=== PATIENT | female | born 1970 | race Native Hawaiian/Other Pacific Islander ===

== ENCOUNTER 2018-01-08 16:46 | Emergency (ER) | payer OTHER ==
[~2018-01-08] VITALS: Ht 162.6 cm; Wt 77.1 kg
== END 2018-01-08 17:40 | disposition home or self-care (01) ==
LOC: ED 16:46
DX: K08.89 Other specified disorders of teeth and supporting structures (principal); S02.5XXA Fracture of tooth (traumatic), initial encounter for closed fracture
CPT/HCPCS: 99281

== ENCOUNTER 2020-06-01 17:27 | Emergency (ER) | payer OTHER ==
[~2020-06-01] VITALS: Ht 162.6 cm; Wt 68.0 kg
[2020-06-01 17:45] VITALS: BP 150/89; TEMP 98.9
== END 2020-06-01 19:10 | disposition home or self-care (01) ==
LOC: ED 18:49
DX: L29.8 Other pruritus (principal); N89.8 Other specified noninflammatory disorders of vagina
CPT/HCPCS: 99281